=== PATIENT | male | born 1980 | race Caucasian/White ===

== ENCOUNTER 2019-05-27 06:18 | Observation (INO) | payer OTHER ==
--- NOTE | 2019-05-27 07:15 | ED ---
Upper Extremity HPI - General Chief Complaint: Extremity Injury, Upper Stated Complaint: R Finger Pain Time Seen by Provider: 05/27/19 06:59 Source: patient, RN notes reviewed Mode of arrival: ambulatory Limitations: no limitations - History of Present Illness Initial Comments: This is a 38-year-old male presents emergency Department chief complaint of right hand third digit pain. Patient states that it started on Monday is progressively worse until he cannot tolerate the pain last night. Patient states his finger is swollen, slightly red there is pain only into his palmar aspect. Patient states he has to keep his finger and slightly flexed position because it feels more comfortable. Patient reports subjective fever. Patient states he is [id number] he denies any trauma. Patient states she's never had any like this in the past or prior hand surgeries. No paresthesias. - Related Data Home Medications Medication Instructions Recorded Confirmed No Known Home Medications 05/27/19 05/27/19 Allergies Allergy/AdvReac Type Severity Reaction Status Date / Time No Known Allergies Allergy Verified 05/27/19 07:16 Review of Systems ROS Statement: Those systems with pertinent positive or pertinent negative responses have been documented in the HPI. ROS Other: All systems not noted in ROS Statement are negative. Past Medical History Past Medical History: No Reported History History of Any Multi-Drug Resistant Organisms: None Reported Past Surgical History: No Surgical Hx Reported Past Psychological History: No Psychological Hx Reported Smoking Status: Never smoker Past Alcohol Use History: Occasional Past Drug Use History: None Reported General Exam Limitations: no limitations General appearance: alert, in no apparent distress Head exam: Present: atraumatic, normocephalic, normal inspection Eye exam: Present: normal appearance, PERRL, EOMI. Absent: scleral icterus, conjunctival injection, periorbital swelling Respiratory exam: Present: normal lung sounds bilaterally. Absent: respiratory distress, wheezes, rales, rhonchi, stridor Cardiovascular Exam: Present: regular rate, normal rhythm, normal heart sounds. Absent: systolic murmur, diastolic murmur, rubs, gallop, clicks Extremities exam: Present: other (Right hand third digit there is diffuse swelling of the digit, pain with passive and active range of motion there is some tenderness just proximal to MCP region patient's fingers kept in the semiflexed position there is mild erythema Refill less than 2 seconds remaining digits within normal limits) Skin exam: Present: warm, dry, intact, normal color. Absent: rash Course Vital Signs 05/27/19 06:26 Temperature 98.3 F Pulse Rate 64 Respiratory 17 Rate Blood Pressure 125/87 O2 Sat by Pulse 100 Oximetry Medical Decision Making - Medical Decision Making 38-year-old male presents emergency from with chief complaint of right hand pain. Patient's symptoms are consistent with flexor tenosynovitis. Patient will be admitted to medicine with consult to orthopedics I did discuss the case with orthopedics. Patient was started on Unasyn and vancomycin - Lab Data Result diagrams: 05/27/19 07:26 05/27/19 07:26 Lab Results 05/27/19 05/27/19 05/27/19 Range/Units 07:26 07:26 07:26 WBC 10.6 (3.8-10.6) k/uL RBC 5.71 (4.30-5.90) m/uL Hgb 16.5 (13.0-17.5) gm/dL Hct 49.3 (39.0-53.0) % MCV 86.4 (80.0-100.0) fL MCH 29.0 (25.0-35.0) pg MCHC 33.5 (31.0-37.0) g/dL RDW 15.7 H (11.5-15.5) % Plt Count 150 (150-450) k/uL Neutrophils % 72 % Lymphocytes % 17 % Monocytes % 8 % Eosinophils % 2 % Basophils % 0 % Neutrophils # 7.7 (1.3-7.7) k/uL Lymphocytes # 1.8 (1.0-4.8) k/uL Monocytes # 0.8 (0-1.0) k/uL Eosinophils # 0.2 (0-0.7) k/uL Basophils # 0.0 (0-0.2) k/uL ESR 1 (0-15) mm/hr Sodium 143 (137-145) mmol/L Potassium 4.2 (3.5-5.1) mmol/L Chloride 105 (98-107) mmol/L Carbon Dioxide 27 (22-30) mmol/L Anion Gap 11 mmol/L BUN 12 (9-20) mg/dL Creatinine 0.98 (0.66-1.25) mg/dL Est GFR (CKD-EPI)AfAm >90 (>60 ml/min/1.73 sqM) Est GFR (CKD-EPI)NonAf >90 (>60 ml/min/1.73 sqM) Glucose 102 H (74-99) mg/dL Plasma Lactic Acid Federico 1.5 (0.7-2.0) mmol/L Calcium 9.2 (8.4-10.2) mg/dL C-Reactive Protein <5.0 (<10.0) mg/L Disposition Clinical Impression: Flexor tenosynovitis of finger Disposition: ADMITTED IP TO THIS HOSP Condition: Stable Referrals: Nonstaff,Physician [REFERRING] - 1-2 days
--- NOTE | 2019-05-27 07:18 | XR ---
EXAM: XR Right Hand Complete, 3 or More Views CLINICAL HISTORY: ITS.REASON XR Reason: Pain TECHNIQUE: Frontal, lateral and oblique views of the right hand. COMPARISON: No relevant prior studies available. FINDINGS: Bones/joints: No acute fracture. No dislocation. Soft tissues: Unremarkable. No radiopaque foreign body. IMPRESSION: No acute findings.
[2019-05-27 07:45] LABS: Basophils % (A) 0 %; Eosinophils # (A) 0.2 k/uL (0-0.7); Eosinophils % (A) 2 %; HCT 49.3 % (39.0-53.0); HGB 16.5 gm/dL (13.0-17.5); Lymphocytes # (A) 1.8 k/uL (1.0-4.8); Lymphocytes % (A) 17 %; MCHC 33.5 g/dL (31.0-37.0); MCV 86.4 fL (80.0-100.0); Mean Platelet Volume 9.2; Monocytes # (A) 0.8 k/uL (0-1.0); Monocytes % (A) 8 %; Neutrophils # (A) 7.7 k/uL (1.3-7.7); Neutrophils % (A) 72 %; Platelet Count 150 k/uL (150-450); RBC 5.71 m/uL (4.30-5.90); RDW 15.7 % (11.5-15.5); WBC 10.6 k/uL (3.8-10.6)
[2019-05-27 07:52] LABS: African American GFR (CKD) >90 (>60 ml/min/1.73 sqM); Anion Gap 11 mmol/L; Blood Urea Nitrogen 12 mg/dL (9-20); Calcium 9.2 mg/dL (8.4-10.2); Carbon Dioxide 27 mmol/L (22-30); Chloride 105 mmol/L (98-107); Glucose 102 mg/dL (74-99); Potassium 4.2 mmol/L (3.5-5.1); Sodium 143 mmol/L (137-145)
[2019-05-27 08:32] LABS: Erythrocyte Sedimentation Rate 1 mm/hr (0-15)
[2019-05-27 09:04] LABS: C Reactive Protein <5.0 mg/L (<10.0)
[2019-05-27] MEDS ORDERED: AMPICILLIN-SULBACTAM 3 GM in SODIUM CHLORIDE 0.9% 100 ML IVPB STA (10:53)
[2019-05-27] MEDS ORDERED: VANCOMYCIN IV PER PHARMACY 1 EACH MISC MISCELLANE PRN (10:53)
[2019-05-27] MEDS ORDERED: VANCOMYCIN 1,500 MG in SODIUM CHLORIDE 0.9% 250 ML IVPB ONE (11:30)
[2019-05-27] MEDS ORDERED: HYDROcodone/APAP 5-325MG 1 EACH TAB PO PRN (17:15)
[2019-05-27] MEDS ORDERED: MORPHINE SULFATE 2 MG/ML SYRINGE IV PRN (17:15)
[2019-05-27] MEDS ORDERED: ACETAMINOPHEN TAB 325 MG TAB PO PRN (17:15)
[2019-05-27] MEDS ORDERED: NALOXONE 0.4 MG/ML 1 ML VIAL IV PRN (17:15)
--- NOTE | 2019-05-27 17:35 | P.HPIM ---
History of Present Illness H&P Date: 05/27/19 Chief Complaint: Finger pain 38-year-old male with no past medical history presents to the ED for right finger pain. Patient reports that this started on Monday with swelling of his middle finger. The swelling and pain extended to the base of the finger and into the palm of the hand, prompting patient to come to the ED. Patient denies working with his hands extensively. He denies any injuries to his right hand. Patient denies any headaches, lower extremity edema, nausea or vomiting, fever or chills, cough, chest pain, shortness of breath, palpitations, changes in urination or bowel habits. No changes in appetite or weight. No dizziness, numbness/weakness/tingling of the extremities. In the ED, CBC and CMP were unremarkable. CRP was negative. Lactic acid was negative. Hand x-ray showed no acute findings. Patient is admitted for possible flexor tenosynovitis with orthopedic surgery on consult. Review of Systems Pertinent positives and negatives as discussed in HPI, a complete review of systems was performed and all other systems are negative. Past Medical History Past Medical History: No Reported History History of Any Multi-Drug Resistant Organisms: None Reported Past Surgical History: No Surgical Hx Reported Past Anesthesia/Blood Transfusion Reactions: No Reported Reaction Past Psychological History: No Psychological Hx Reported Smoking Status: Never smoker Past Alcohol Use History: Occasional Past Drug Use History: None Reported Medications and Allergies Home Medications Medication Instructions Recorded Confirmed Type No Known Home Medications 05/27/19 05/27/19 History Allergies Allergy/AdvReac Type Severity Reaction Status Date / Time No Known Allergies Allergy Verified 05/27/19 07:16 Physical Exam Vitals: Vital Signs Temp Pulse Pulse Resp BP BP BP 05/27/19 15:57 71 16 05/27/19 15:38 98.6 F 71 16 117/75 05/27/19 12:00 98.2 F 73 18 124/79 05/27/19 11:47 97.8 F 73 18 129/92 05/27/19 11:27 97.8 F 73 18 129/92 05/27/19 06:26 98.3 F 64 17 125/87 Pulse Ox 05/27/19 15:57 05/27/19 15:38 97 05/27/19 12:00 98 05/27/19 11:47 94 L 05/27/19 11:27 94 L 05/27/19 06:26 100 Intake and Output 05/27/19 05/27/19 05/27/19 06:59 14:59 22:59 Other: Voiding Method Toilet Toilet Weight 97.976 kg General: [non toxic], [no distress], [appears at stated age] Derm: [warm], [dry] Head: [atraumatic], [normocephalic], [symmetric] Eyes: [EOMI], [no lid lag], [anicteric sclera] Mouth: [no lip lesion], [mucus membranes moist] Cardiovascular: [S1S2 reg], [no murmur], [positive posterior tibial pulse bilateral], Lungs: [CTA bilateral], [no rhonchi, no rales] , [no accessory muscle use] Abdominal: [soft], [ nontender to palpation], [no guarding], [no appreciable organomegaly] Ext: [no gross muscle atrophy], [no edema], [no contractures], [unable to flex or extend the right middle finger, tenderness to palpation at the base and the palm] Neuro: [ CN II-XI grossly intact], [no focal neuro deficits] Psych: [Alert], [oriented], [appropriate affect] Results CBC & Chem 7: 05/27/19 07:26 05/27/19 07:26 Labs: Abnormal Lab Results - Last 24 Hours (Table) 05/27/19 05/27/19 Range/Units 07: 07:26 RDW 15.7 H (11.5-15.5) % Glucose 102 H (74-99) mg/dL Thrombosis Risk Factor Assmnt - Choose All That Apply Any of the Below Risk Factors Present?: Yes Each Factor Represents 1 point: Obesity (BMI >25) Thrombosis Risk Factor Assessment Total Risk Factor Score: 1 Thrombosis Risk Factor Assessment Level: Low Risk Assessment and Plan Assessment: Assessment and Plan Right middle finger swelling and pain, possible flexor tenosynovitis X-ray negative. Patient is afebrile with no leukocytosis. Start vancomycin and Unasyn. [place] or morphine for pain control. Follow orthopedic consultation. Patient elects to be full code at this time. Patient names his decision- maker in the case that he can make decisions for himself.
[2019-05-27] MEDS ORDERED: diphenhydrAMINE 50 MG CAP PO PRN (17:56)
[2019-05-27] MEDS ORDERED: LEVOFLOXACIN 500MG-D5W PMX 500 MG in DEXTROSE/WATER 1 100ML.BAG IVPB SCH (19:00)
[2019-05-27] MEDS ORDERED: VANCOMYCIN 1,500 MG in SODIUM CHLORIDE 0.9% 250 ML IVPB SCH ×2 (19:00→20:00)
[2019-05-27] MEDS ORDERED: CLINDAMYCIN 600 MG in DEXTROSE 5% IN WATER 50 ML IVPB SCH ×2 (19:00)
[2019-05-27] MEDS ORDERED: KETOROLAC 30 MG/ML 1 ML VIAL IM STA (19:05)
--- NOTE | 2019-05-27 19:18 | P.CNOR ---
History of Present Illness - [facility] Consult date: 05/27/19 History of present illness: This patient is a 38-year-old right hand dominant male with no stated past medical history that presented to [facility] ED on 05/27/19 for evaluation of his right hand. The patient states he began experiencing pain in the right middle finger on Monday. The patient states there is no trauma. The patient denies any abnormal activities, or increase activities that required his hands recently. 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 The patient states he originally had noticed a swelling on Monday, and began to notice increasing pain on Monday. He states he woke up this morning with unbearable pain in the right middle finger, therefore he presented to [facility] ED for evaluation. Hand x-rays in the ED revealed no acute abnormalities. ESR, CRP, and CBC were all within normal limits. He denies noticing erythema of the finger. Patient states he overall feels well. He denies history of gout. He denies personal or family history of rheumatoid arthritis. He denies nausea, vomiting, fevers, chills, generalized malaise. Patient voices no other orthopedic complaints. Vital signs stable. Past Medical History Past Medical History: No Reported History History of Any Multi-Drug Resistant Organisms: None Reported Past Surgical History: No Surgical Hx Reported Past Anesthesia/Blood Transfusion Reactions: No Reported Reaction Past Psychological History: No Psychological Hx Reported Smoking Status: Never smoker Past Alcohol Use History: Occasional Past Drug Use History: None Reported Medications and Allergies Home Medications Medication Instructions Recorded Confirmed Type No Known Home Medications 05/27/19 05/27/19 History Allergies Allergy/AdvReac Type Severity Reaction Status Date / Time No Known Allergies Allergy Verified 05/27/19 07:16 Physical Examination On examination, the patient is sitting up in bed in no apparent distress. He is alert and orientated x3. Family is bedside. His head is normocephalic and atraumatic. His breathing appears non-labored. On inspection of the right hand, there is diffuse swelling of the middle finger. Middle finger being held in flexed position. There are no open wounds or lacerations. No erythema, ecchymosis or skin discoloration. There is pain to palpation of the flexor tendon proximal to the MCP joint. There is pain with PROM of the middle finger. No pain with PROM of the additional fingers or thumb. All fingers and thumb are warm and well-perfused with brisk capillary refill. Sensation is intact to light touch in the distribution of the median, radial, and ulnar nerves. Results Right hand x-rays: No acute fractures, no acute bony abnormalities. - Labs Labs: Abnormal Lab Results - Last 24 Hours (Table) 05/27/19 05/27/19 Range/Units 07: 07: RDW 15.7 H (11.5-15.5) % Glucose 102 H (74-99) mg/dL H & H 05/27/19 Range/Units 07: Hgb 16.5 (13.0-17.5) gm/dL Hct 49.3 (39.0-53.0) % Result Diagrams: 05/27/19 07:05/27/19 07:26 Assessment and Plan Assessment: Inflammatory flexor tenosynovitis, right middle digit Plan: - Discussed the clinical and x-ray findings with the patient. There is no surgical intervention planned at this time. - Patient will be given one dose of 30 mg IM toradol. Recommend the patient be given an oral NSAID on discharge. - We will plan to check a rheumatoid panel and uric acid. - Antibiotic management per primary team. - We will continue to follow patient and make recommendations as needed. Patient discussed with Dr. Mcclendon.
[2019-05-27] MEDS ORDERED: AMPICILLIN-SULBACTAM 3 GM in SODIUM CHLORIDE 0.9% 100 ML IVPB SCH (20:00)
[2019-05-27] MEDS: VANCOMYCIN 1,500 MG in SODIUM CHLORIDE 0.9% 250 ML IVPB SCH (20:03)
[2019-05-27] MEDS: AMPICILLIN-SULBACTAM 3 GM in SODIUM CHLORIDE 0.9% 100 ML IVPB SCH (23:08)
[2019-05-27 23:45] VITALS: RESP 15
[2019-05-28] MEDS: VANCOMYCIN 1,500 MG in SODIUM CHLORIDE 0.9% 250 ML IVPB SCH ×2 (02:08→10:55)
[2019-05-28] MEDS: AMPICILLIN-SULBACTAM 3 GM in SODIUM CHLORIDE 0.9% 100 ML IVPB SCH (08:01)
[2019-05-28 08:28] VITALS: BP 129/84; PULSE 75; TEMP 97.7
[2019-05-28 08:36] LABS: Lyme IgG/IgM 0.19 Index
--- NOTE | 2019-05-28 12:04 | P.DS ---
Providers Date of admission: 05/27/19 11:14 Expected date of discharge: 05/28/19 Attending physician: Brianna Rolon MD Consults: 05/27/19 10:55 Consult Physician Urgent Consulting Provider: Ramirez Mcclendon Consult Reason/Comments: Flexor tenosynovitis Do you want consulting provider notified?: Yes Primary care physician: Joshua Valles MD Hospital Course: 38-year-old male with no past medical history presents to the ED for right finger pain. Patient reports that this started on Monday with swelling of his middle finger. The swelling and pain extended to the base of the finger and into the palm of the hand, prompting patient to come to the ED. Patient denies working with his hands extensively. He denies any injuries to his right hand. Patient denies any headaches, lower extremity edema, nausea or vomiting, fever or chills, cough, chest pain, shortness of breath, palpitations, changes in urination or bowel habits. No changes in appetite or weight. No dizziness, numbness/weakness/tingling of the extremities. In the ED, CBC and CMP were unremarkable. CRP was negative. Lactic acid was negative. Hand x-ray showed no acute findings. Patient is admitted for possible flexor tenosynovitis with orthopedic surgery on consult. Patient was evaluated by orthopedic surgery and his tenosynovitis was thought to be inflammatory rather than infectious. Recommendation was made for patient to complete 7 days of Keflex in the outpatient setting. Orthopedic surgery also recommended NSAID treatment. Patient seen and examined prior to discharge. No acute events overnight. Patient reports improvement in his right middle finger swelling. States that he can straighten his finger out a little better today. He denies any chest pain, shortness breath or palpitations. No nausea vomiting. No fever or chills. General: [non toxic], [no distress], [appears at stated age] Derm: [warm], [dry] Ext: [no gross muscle atrophy], [no edema], [no contractures], [unable to flex or extend the right middle finger, tenderness to palpation at the base and the palm, improved] Psych: [Alert], [oriented], [appropriate affect] Assessment and Plan Right middle finger swelling and pain, possible flexor tenosynovitis X-ray negative. Patient is afebrile with no leukocytosis. Discharge with 7 days of Keflex and NSAID. Discussed with orthopedic surgery, patient cleared for discharge. Pertinent Studies: hand x-ray Patient Condition at Discharge: Stable Plan - Discharge Summary Discharge Rx Participant: No New Discharge Prescriptions: New Cephalexin [Keflex] 500 mg PO Q12HR #14 cap Meloxicam [Mobic] 7.5 mg PO DAILY #14 tab Discharge Medication List Cephalexin [Keflex] 500 mg PO Q12HR #14 cap 05/28/19 [Rx] Meloxicam [Mobic] 7.5 mg PO DAILY #14 tab 05/28/19 [Rx] Follow up Appointment(s)/Referral(s): Thom Fortune DO [Medical Doctor] - As Needed Nonstaff,Physician [REFERRING] - 1-2 days Activity/Diet/Wound Care/Special Instructions: Diet: Regular Follow-up PCP within 1-2 days of discharge. Follow-up orthopedic surgery within 1 week of discharge. Take all medications as advised. Discharge Disposition: HOME SELF-CARE
--- NOTE | 2019-05-28 12:05 | P.PN ---
Subjective Progress Note Date: 05/28/19 This patient is a 38-year-old right hand dominant male with no stated past medical history that presented to [facility] ED on 05/27/19 for evaluation of his right hand. The patient states he began experiencing pain in the right middle finger on Monday. The patient states there is no trauma. The patient denies any abnormal activities, or increase activities that required his hands recently. 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 The patient states he originally had noticed a swelling on Monday, and began to notice increasing pain on Monday. He states he woke up this morning with unbearable pain in the right middle finger, therefore he presented to [facility] ED for evaluation. Hand x-rays in the ED revealed no acute abnormalities. ESR, CRP, and CBC were all within normal limits. He denies noticing erythema of the finger. Patient states he overall feels well. He denies history of gout. He denies personal or family history of rheumatoid arthritis. 05/28/19: The patient states he feels well this morning. He states his pain improved gradually overnight after receiving the toradol. He also has noticed a minor decrease in swelling in the third digit. He denies pain with active flexion of the finger. He denies erythema, warmth of the digit. He denies fevers, chills, nausea, vomiting. Patient also seen and examined by Dr. Mcclendon. Objective - Vital Signs Vital signs: Vital Signs Temp 97.7 F 05/28/19 07:25 Pulse 75 05/28/19 07:25 Resp 15 05/28/19 08:00 BP 129/84 05/28/19 07:25 Pulse Ox 97 05/28/19 07:25 Intake & Output 05/27/19 05/28/19 05/28/19 18:59 06:59 18:59 Intake Total 350 480 Balance 350 480 Intake: Intake, IV Titration 350 Amount Ampicillin-Sulbactam 3 gm 100 In Sodium Chloride 0.9% 100 ml @ 200 mls/hr IVPB Q8H KRISHNA Rx#:[id number] Vancomycin 1,500 mg In 250 Sodium Chloride 0.9% 250 ml @ 125 mls/hr IVPB Q8H KRISHNA Rx#:[id number] Oral 480 Other: Voiding Method Toilet Toilet Toilet # Voids 1 2 - Exam On examination, the patient is sitting up in bed in no apparent distress. He is alert and orientated x3. On inspection of the right hand, there is diffuse swelling of the middle finger, mildly decreased from exam yesterday. Middle finger being held in flexed position. There are no open wounds or lacerations. No erythema, ecchymosis or skin discoloration. There is pain to palpation of the flexor tendon proximal to the MCP joint. There is pain with passive extension of the middle finger. No pain with PROM of the additional fingers or thumb. All fingers and thumb are warm and well-perfused with brisk capillary refill. Sensation is intact to light touch in the distribution of the median, radial, and ulnar nerves. - Labs CBC & Chem 7: 05/27/19 07:26 05/27/19 07:26 Assessment and Plan Assessment: Inflammatory flexor tenosynovitis, right middle digit Plan: - Discussed the clinical and x-ray findings with the patient. There is no surgical intervention planned at this time. - Recommend the patient be given an oral NSAID on discharge. - Recommend immobilization of the right middle digit. - Rheumatoid panel and uric acid unremarkable. - Antibiotic management per primary team. - Patient is cleared for discharge from an orthopedic standpoint. We will continue to follow patient while he remains inpatient and make recommendations as needed. He may follow up with either Dr. Fortune or Dr. Zak Ann following discharge. Patient discussed with Dr. Mcclendon.
[2019-05-28] MEDS ORDERED: VANCOMYCIN TROUGH DUE 1 EACH MISC MISCELLANE ONE (19:00)
[2019-05-28] MEDS ORDERED: VANCOMYCIN 1,500 MG in SODIUM CHLORIDE 0.9% 250 ML IVPB SCH (20:00)
[2019-05-29 12:14] LABS: HLA B27 NEGATIVE
== END 2019-05-28 12:45 | disposition home or self-care (01) ==
LOC: EC 06:18 → 1SOBS 11:14
PROVIDERS: ADMIT Family Medicine; ATTEND Family Medicine
DX: M79.89 Other specified soft tissue disorders (principal)
CPT/HCPCS: 96366 ×2; 96367; 96372; 96365; 99284; 36415; 86812; 80048; 85652; 83605; 84550; 85025; 86140; 86431; 87040; 86618; 86060; 86038; 73130; G0378 ×2; J3370 ×2; J1885; J0295 ×2